=== PATIENT | male | born 1985 | race Caucasian/White ===

== ENCOUNTER 2018-10-20 15:54 | Emergency (ER) | payer BC ==
[~2018-10-20] VITALS: Ht 172.7 cm; Wt 64.4 kg
[2018-10-20 16:39] VITALS: BP 129/79
== END 2018-10-20 16:42 | disposition home or self-care (01) ==
LOC: ED 16:25
DX: J02.0 Streptococcal pharyngitis (principal); M79.10 Myalgia, unspecified site; R50.81 Fever presenting with conditions classified elsewhere
CPT/HCPCS: 96372; 99283; J0561